=== PATIENT | female | born 1990 | race Caucasian/White ===

== ENCOUNTER 2016-12-28 12:11 | Outpatient (CLI) | payer MEDICAID ==
[~2016-12-28] VITALS: Ht 170.2 cm; Wt 74.8 kg
[2016-12-28] MEDS ORDERED: PRENATAL 1+1)(P1 TAB PO (12:46)
[2016-12-28] MEDS ORDERED: BENADRYL25 MG PO (12:47)
== END 2016-12-28 13:54 | disposition disaster alternative care site (69) ==
LOC: GOBM 12:11 → GOBS 12:11 → GOBM 13:54
DX: Z34.80 Encounter for supervision of other normal pregnancy, unspecified trimester (principal); Z3A.00 Weeks of gestation of pregnancy not specified; O34.219 Maternal care for unspecified type scar from previous cesarean delivery
CPT/HCPCS: G0463

== ENCOUNTER 2017-01-12 06:00 | Inpatient (IN) | payer MEDICAID ==
[~2017-01-12] VITALS: Ht 170.2 cm; Wt 75.5 kg
--- NOTE | ~2017-01-12 | OR ---
PATIENT'S NAME: SUN CARDENAS [place] AGE: 26 Y [address] ROOM: [place] [address] LOCATION: [facility] ADMIT DATE: 01/12/2017 OR/Procedure Report DISCHARGE DATE: FAMILY PHYSICIAN: Zehra Mathew DO ATTENDING PHYSICIAN: LONDON ELIZALDE SURGEON: London Elizalde MD BREAK AND LOAD OPERATOR: Carolina Lopez M.D. Her assistance was required for delivery of the fetus and adequate exposure during the case. DATE OF PROCEDURE: 01/12/2017 PREOPERATIVE DIAGNOSES: 1. History of low-transverse section. 2. History of previous child with hydrocephalus. 3. Thirty nine-week intrauterine . POSTOPERATIVE DIAGNOSES: 1. History of low-transverse section. 2. History of previous child with hydrocephalus. 3. Thirty nine-week intrauterine . PROCEDURE PERFORMED: Repeat low transverse section. ANESTHESIA: Spinal. FINDINGS: Viable female infant with Apgars of 8 and 9. Weight is 6 pounds and 7 ounces. Placenta intact with three-vessel cord. Normal uterus, normal fallopian tubes, and ovaries bilaterally. ESTIMATED BLOOD LOSS: 600 mL. COMPLICATIONS: None. INDICATIONS: The patient is a 26-year-old, -0-0-1 with intrauterine at 39 weeks 0 days, who presented for scheduled repeat section. The patient has history one previous section for arrest of dilation. The patient was counseled on the risks of surgery to include, but are not be limited to bleeding, infection, damage surrounding organs and tissues including bowel, bladder, blood vessels, ureters, and nerves. She was also counseled on the risk of needing additional procedures or hospitalizations due to any complications. DESCRIPTION OF PROCEDURE: The patient was taken the OR, where spinal anesthesia was placed. She was placed in dorsal supine position with a PATIENT'S NAME: SUN CARDENAS [facility] AGE: 26 Y [address] ROOM: [place] [address] LOCATION: [facility] ADMIT DATE: 01/12/2017 OR/Procedure Report DISCHARGE DATE: FAMILY PHYSICIAN: Zehra Mathew DO ATTENDING PHYSICIAN: LONDON ELIZALDE leftward tilt. Bella catheter was placed. She was then prepped and draped in the usual sterile fashion. A time-out was performed. Anesthesia was found to be adequate. The patient's previous Pfannenstiel incision was excised. The incision was carried down to the underlying fascia. The fascia was scored. The fascial incision was then extended with Diallo scissors. The rectus muscles were dissected off the fascia superiorly and inferiorly with sharp and blunt dissection. The peritoneum was identified and entered bluntly. The peritoneal incision was extended. The bladder blade was placed for visualization and scalpel was then used make a transverse incision in the lower uterine segment. This was extended in the cephalad caudal direction. The artificial rupture of membranes of clear fluid was performed. The head was then delivered followed by the remainder of the fetus. The cord was clamped and cut. The was handed to the waiting delivery team. The placenta was then expressed intact. The uterus was exteriorized and cleared of remaining clots and debris. The uterus was then closed in a running locked fashion with 0 chromic suture. Hemostasis was noted. The uterus was replaced into the abdominal cavity. The hysterotomy was reexamined and no areas of bleeding were noted. The rectus muscles and fascia were examined and no areas of bleeding were noted. The fascia was then closed in a running fashion using 0-PDS suture bearing the knot at the end. The subcutaneous tissue was then irrigated and any areas of bleeding were cauterized. It was then closed to better reapproximate the skin edges with 2-0 Vicryl in a running fashion. The skin was then closed with 4-0 Monocryl in the subcuticular fashion as well as Steri-Strips and a pressure dressing. Instrument, sponge, and needle counts were correct prior to abdominal closure and at the conclusion of case. DISPOSITION: Mom is stable. Baby is in room with mom. MD STELLA MONTGOMERY/denys /[id number] d: 01/12/17 1045 t: 01/19/17 1340, OPERATIVE SUMMARY
--- NOTE | ~2017-01-12 | DS ---
[facility]GE: 26 Y [address] ROOM: [place] [address] LOCATION: [facility] ADMIT DATE: 01/12/2017 Discharge Summary DISCHARGE DATE: 01/15/2017 FAMILY PHYSICIAN: Zehra Mathew DO ATTENDING PHYSICIAN: London Elizalde DISCHARGE DIAGNOSES: 1. Status post repeat low transverse section. 2. History of previous delivery. 3. Term intrauterine . 4. Anemia from acute blood loss. PROCEDURES DURING ADMISSION: Repeat low transverse section. HOSPITAL COURSE: The patient is a 26-year-old G2, P1-0-0-1 with intrauterine at 39 weeks who presented for scheduled repeat section. She underwent a repeat low transverse section without complications. The Bella catheter was removed on postop day #0. She was ambulating and able to void. On postoperative day #0, her hemoglobin was noted to be 8.1, down from 10.6, preoperatively on postoperative day #1, it was noted to be 7.1, on postoperative day #2, it was noted to be 6.1. The patient was feeling dizzy and was tachycardic, but otherwise was stable. Blood transfusion was recommended and the patient received 2 units packed red blood cells on postoperative day #2. Her hemoglobin on postoperative day #3 was 8.3, she was ambulating, urinating, tolerating p.o., and desired to be discharged home. DISCHARGE MEDICATIONS: See MAR. She was sent home with: 1. Percocet. 2. Motrin. 3. Colace. 4. Iron. DISCHARGE INSTRUCTIONS: The patient is instructed no lifting greater than 15 pounds, nothing in the vagina for 6 weeks, no driving while on narcotics, and to call with fever greater than 100.4, heavy vaginal bleeding, or if any area for incision becomes red or infected. FOLLOW UP: The patient will follow up with Dr. Elizalde in 2 weeks. MD STELLA MONTGOMERY/denys [facility] AGE: 26 Y [address] ROOM: [place] [address] LOCATION: [facility] ADMIT DATE: 01/12/2017 Discharge Summary DISCHARGE DATE: 01/15/2017 FAMILY PHYSICIAN: Zehra Mathew DO ATTENDING PHYSICIAN: London Elizalde /[id number] d: 02/03/17 0423 t: 02/09/17 0849, DISCHARGE SUMMARY
[~2017-01-12 06:00] MED LIST: BENADRYL25 MG PO; PRENATAL 1+1)(P1 TAB PO
[2017-01-12 06:42] LABS: BASOPHIL # 0.1 K/uL (0.0-0.2); BASOPHIL % 0.3 %; EOSINOPHIL # 0.1 K/uL (0.0-0.5); HEMATOCRIT 31.6 % (33.0-46.0); HEMOGLOBIN 10.6 g/dL (11.0-15.0); IMMATURE GRANULOCYTE # 0.2 K/uL (0.0-0.3); IMMATURE GRANULOCYTE % 1.6 %; LYMPHOCYTE # 3.3 K/uL (0.8-4.0); LYMPHOCYTE % 22.7 %; MCH 28.3 pg (27.0-34.0); MCHC 33.5 gm/dL (32.0-36.5); MCV 84.5 fl (83.0-98.0); MONOCYTE # 0.9 K/uL (0.0-1.0); MONOCYTE % 6.5 %; MPV 9.2 fl (9.4-12.4); NEUTROPHIL # (ANC) 9.7 K/uL (1.8-7.8); NEUTROPHIL % 67.9 %; NRBC % 0 /100WBC (0-0.00); PLATELET COUNT 267 K/uL (150-450); RBC 3.74 M/uL (3.50-5.00); RDW-CV 12.2 % (11.9-14.6); WBC 14.3 K/uL (4.0-11.0)
--- NOTE | 2017-01-12 19:00 | NUR ---
01/12/17 1800: Recovery done @ 1756. Jena d/c'ed @ 1715,clear yellow. u/o wnl.vss. Pulse 90-100's. Next Toradol @ 1999. Perc @ 2099. Afeb.
[2017-01-12 21:50] LABS: BASOPHIL % 0.1 %; HEMOGLOBIN 8.1 g/dL (11.0-15.0); IMMATURE GRANULOCYTE # 0.2 K/uL (0.0-0.3); LYMPHOCYTE # 1.8 K/uL (0.8-4.0); LYMPHOCYTE % 8.9 %; MCHC 33.5 gm/dL (32.0-36.5); MCV 87.1 fl (83.0-98.0); MONOCYTE # 1.4 K/uL (0.0-1.0); MPV 9.1 fl (9.4-12.4); NEUTROPHIL # (ANC) 16.6 K/uL (1.8-7.8); NRBC % 0 /100WBC (0-0.00); PLATELET COUNT 319 K/uL (150-450); RDW-CV 12.1 % (11.9-14.6)
[2017-01-12 21:51] LABS: HEMATOCRIT 24.2 % (33.0-46.0); MCH 29.1 pg (27.0-34.0); RBC 2.78 M/uL (3.50-5.00); WBC 20.1 K/uL (4.0-11.0)
--- NOTE | 2017-01-13 04:30 | NUR ---
vss, fundus firm, at umbilicus, small flow. microfoam dressing c/d/i. SL in left forearm. voids large amounts w/o difficulties. bowel sounds hypoactive. no flatus. pt is starting to get gas pains. pt has syncopal episode on toilet at beginning of shift and then again around 2114. pt was finally able tp get up and ambulate in halls and is feeling much better. hgb 8.1. 2 peroccet given at 0500. heat pack to lower back for cramping.
[2017-01-13 05:50] LABS: BASOPHIL % 0.1 %; EOSINOPHIL % 0.1 %; HEMATOCRIT 21.8 % (33.0-46.0); HEMOGLOBIN 7.1 g/dL (11.0-15.0); IMMATURE GRANULOCYTE # 0.2 K/uL (0.0-0.3); IMMATURE GRANULOCYTE % 1.1 %; LYMPHOCYTE # 1.8 K/uL (0.8-4.0); LYMPHOCYTE % 10.6 %; MCH 28.6 pg (27.0-34.0); MCHC 32.6 gm/dL (32.0-36.5); MCV 87.9 fl (83.0-98.0); MONOCYTE # 1.3 K/uL (0.0-1.0); MONOCYTE % 7.8 %; MPV 9.7 fl (9.4-12.4); NEUTROPHIL # (ANC) 13.7 K/uL (1.8-7.8); NEUTROPHIL % 80.3 %; NRBC % 0 /100WBC (0-0.00); PLATELET COUNT 252 K/uL (150-450); RBC 2.48 M/uL (3.50-5.00); RDW-CV 12.3 % (11.9-14.6); WBC 17.1 K/uL (4.0-11.0)
--- NOTE | 2017-01-13 18:00 | NUR ---
01/13/17 1800 Hgb 7.1. Will have repeat in am. Started on Iron daily. Afebrile. Inc. intact w/ suture/steri. Cordon @ 1012.Refused percocet. Iv lock remains intact.
--- NOTE | 2017-01-14 04:36 | NUR ---
vss, fundus firm, at umbilicus, small flow. pt passing small amounts of flatus. incision looks good. up ad hans in room and independent with cares. motrin given at 1828 and 2 percocet given at 2244. possibly home today.
[2017-01-14 04:50] LABS: BASOPHIL % 0.1 %; EOSINOPHIL # 0.2 K/uL (0.0-0.5); EOSINOPHIL % 1.5 %; HEMATOCRIT 18.5 % (33.0-46.0); HEMOGLOBIN 6.1 g/dL (11.0-15.0); IMMATURE GRANULOCYTE # 0.1 K/uL (0.0-0.3); IMMATURE GRANULOCYTE % 1.2 %; LYMPHOCYTE % 25.2 %; MCH 28.9 pg (27.0-34.0); MCV 87.7 fl (83.0-98.0); MONOCYTE % 8.4 %; MPV 9.3 fl (9.4-12.4); NEUTROPHIL # (ANC) 7.4 K/uL (1.8-7.8); NEUTROPHIL % 63.6 %; NRBC % 0 /100WBC (0-0.00); PLATELET COUNT 220 K/uL (150-450); RBC 2.11 M/uL (3.50-5.00); RDW-CV 12.5 % (11.9-14.6); WBC 11.7 K/uL (4.0-11.0)
--- NOTE | 2017-01-14 15:43 | NUR ---
Significant Event: Follow up: VSS, HBG 6.1, 2 units RBC's given, completed @ 2073. IV site saline locked. 3-4 cm eccymotic area above incision, no change, remains tender. Bravo @ 0627.... Repeat CBC for AM. Remains on FEso4 po.
[2017-01-15 04:11] LABS: BASOPHIL % 0.3 %; EOSINOPHIL # 0.3 K/uL (0.0-0.5); EOSINOPHIL % 2.5 %; HEMOGLOBIN 8.3 g/dL (11.0-15.0); IMMATURE GRANULOCYTE # 0.2 K/uL (0.0-0.3); IMMATURE GRANULOCYTE % 1.6 %; LYMPHOCYTE # 2.7 K/uL (0.8-4.0); LYMPHOCYTE % 19.8 %; MCHC 33.7 gm/dL (32.0-36.5); MCV 85.7 fl (83.0-98.0); MONOCYTE # 1.1 K/uL (0.0-1.0); MONOCYTE % 8.2 %; MPV 8.8 fl (9.4-12.4); NEUTROPHIL # (ANC) 9.2 K/uL (1.8-7.8); NEUTROPHIL % 67.6 %; NRBC % 0.2 /100WBC (0-0.00); PLATELET COUNT 229 K/uL (150-450); RDW-CV 13.5 % (11.9-14.6); WBC 13.6 K/uL (4.0-11.0)
[2017-01-15 04:12] LABS: HEMATOCRIT 24.6 % (33.0-46.0); MCH 28.9 pg (27.0-34.0); RBC 2.87 M/uL (3.50-5.00)
--- NOTE | 2017-01-15 05:21 | NUR ---
VSS, FUNDUS FIRM, EVEN, SMALL FLOW. STERI STRIPS CLEAN/DRY/INTACT. HEMATOMA ABOVE INCISION HASN'T GOT ANY WORSE. HGB 8.6 UP FROM 6.1. 2 PERCOCET GIVEN @____. HOME TODAY.
[2017-01-15] MEDS ORDERED: MOTRIN800 MG PO (11:21)
[2017-01-15] MEDS ORDERED: SURFAK240 MG PO (11:22)
[2017-01-15] MEDS ORDERED: PERCOCET 5-3251 EACH PO (11:22)
[2017-01-15] MEDS ORDERED: FEOSOL325 MG PO (11:23)
== END 2017-01-15 16:00 | disposition disaster alternative care site (69) | DRG 765 ==
LOC: GOBS 06:00
PROVIDERS: Obstetrics & Gynecology; ADMIT Obstetrics & Gynecology
PROC: 10D00Z1 Extraction of Products of Conception, Low, Open Approach (ICD-10-PCS; principal; 2017-01-12)
PROC: 30233N1 Transfusion of Nonautologous Red Blood Cells into Peripheral Vein, Percutaneous Approach (ICD-10-PCS; 2017-01-14)
DX: O34.211 Maternal care for low transverse scar from previous cesarean delivery (principal); D62 Acute posthemorrhagic anemia; O90.81 Anemia of the puerperium; Z3A.39 39 weeks gestation of pregnancy; Z37.0 Single live birth
CPT/HCPCS: J0690; J1885; J2270; J2590; J3010; J7030; J7120; P9016